=== PATIENT | female | born 1965 | race Caucasian/White ===

== ENCOUNTER 2018-06-20 10:26 | Emergency (ER) | payer SELFPAY ==
[~2018-06-20] VITALS: Ht 160 cm; Wt 67.7 kg
[2018-06-20] MEDS ORDERED: BACITRACIN 0.9 GM PACKET OINTMENT TP ONE (11:45)
[2018-06-20 13:05] VITALS: BP 140/72
== END 2018-06-20 13:04 | disposition home or self-care (01) ==
LOC: EMS 10:28
DX: L08.9 Local infection of the skin and subcutaneous tissue, unspecified (principal); R22.0 Localized swelling, mass and lump, head; Z48.02 Encounter for removal of sutures

== ENCOUNTER 2020-07-23 11:24 | Emergency (ER) | payer MEDICAID ==
[~2020-07-23] VITALS: Ht 160 cm; Wt 65.9 kg
[2020-07-23 11:32] VITALS: BP 156/97
[2020-07-23] MEDS ORDERED: DEXAMETHASONE SOD PHOS 4 MG/ML 5 ML VIAL IM ONE (11:45)
[2020-07-23] MEDS ORDERED: IBUPROFEN 600 MG TABLET PO ONE (11:45)
== END 2020-07-23 13:03 | disposition home or self-care (01) ==
LOC: EMS 11:25
DX: J06.9 Acute upper respiratory infection, unspecified (principal); R51.9 Headache, unspecified; M79.10 Myalgia, unspecified site
CPT/HCPCS: 71045; 87430; 96372; 99284; J1100

== ENCOUNTER 2021-03-09 10:47 | Emergency (ER) | payer MEDICAID ==
[~2021-03-09] VITALS: Ht 160 cm; Wt 65.4 kg
[2021-03-09 11:21] VITALS: BP 135/76
[2021-03-09] MEDS ORDERED: ACETAMINOPHEN 500 MG TABLET PO ONE (11:30)
== END 2021-03-09 13:22 | disposition home or self-care (01) ==
LOC: EMS 10:48
DX: U07.1 COVID-19 (principal)
CPT/HCPCS: 99283; U0003